=== PATIENT | female | born 1995 | race Asian ===

== ENCOUNTER 2023-04-27 13:28 | Emergency (ER) | payer OTHER ==
[~2023-04-27] VITALS: Ht 154.9 cm; Wt 75.6 kg
[2023-04-27] MEDS ORDERED: IBUP-1022 PO (14:10)
[2023-04-27] MEDS ORDERED: LABETALOL 100MG TAB PO STA (14:21)
[2023-04-27] MEDS ORDERED: ONDANSETRON 4MG 2ML VIAL IV ONE (14:25)
[2023-04-27] MEDS ORDERED: NS 1,000 ML IV ONE (14:25)
[2023-04-27 14:50] LABS: HEMOGLOBIN 14.8 g/dl (12.0-15.5); MEAN CORPUSCULAR HEMOGLOBIN 25.3 pg (27.0-33.0); MEAN CORPUSCULAR HGB CONC 33.6 g/dl (32.0-36.5); MEAN CORPUSCULAR VOLUME 75.1 fl (80.0-96.0); PLATELET COUNT, AUTOMATED 318 10^3/uL (150-450); RED BLOOD COUNT 5.86 10^6/uL (4.00-5.40)
[2023-04-27 15:19] LABS: BLOOD UREA NITROGEN 14 MG/DL (9-23); CALCIUM LEVEL 8.6 MG/DL (8.5-10.1); CARBON DIOXIDE LEVEL 27 MMOL/L (20-31); CHLORIDE LEVEL 101 MMOL/L (98-107); CREATININE FOR GFR 0.54 MG/DL (0.55-1.30); GLOMERULAR FILTRATION RATE > 60.0 (>60); GLUCOSE, FASTING 281 MG/DL (60-100); POTASSIUM SERUM 4.3 MMOL/L (3.5-5.1); SODIUM LEVEL 136 MMOL/L (136-145)
[2023-04-27] MEDS ORDERED: KETOROLAC 30 MG/ML 1ML VIAL IV ONE (15:40)
[2023-04-27] MEDS ORDERED: LABE100T71 PO (15:41)
[2023-04-27] MEDS ORDERED: METF500T13 PO (15:41)
[2023-04-27 16:30] VITALS: BP 144/79
== END 2023-04-27 16:43 | disposition home or self-care (01) ==
LOC: M ED 13:28
DX: I16.0 Hypertensive urgency (principal); E11.65 Type 2 diabetes mellitus with hyperglycemia; I10 Essential (primary) hypertension; F10.10 Alcohol abuse, uncomplicated; Z79.84 Long term (current) use of oral hypoglycemic drugs; Z79.899 Other long term (current) drug therapy
CPT/HCPCS: 70450; 80048; 84702; 85027; 93005; 93041; 94760; 96361; 96374; 96375; 99285; J1885; J2405

== ENCOUNTER → 2023-11-11 | Outpatient (CLI) | payer OTHER ==
[~2023-11-11] MED LIST: IBUP-1022 PO; ISOVUE-370 76% 100ML VIAL As Ordered ONE; LABE100T71 PO; METF500T13 PO
== END ==
LOC: M RADPRO 10:42
PROVIDERS: ATTEND Obstetrics & Gynecology
DX: N97.9 Female infertility, unspecified (principal)
CPT/HCPCS: 58340; 74740; Q9967